=== PATIENT | female | born 1995 | race Two or more races ===

== ENCOUNTER 2017-02-26 13:59 | Emergency (ER) | payer OTHER ==
--- NOTE | 2017-02-26 14:17 | EDPHY ---
H & P Time Seen by Provider: 02/26/17 14:10 HPI/ROS: CHIEF COMPLAINT: Possible allergic reaction to mosquitos HISTORY OF PRESENT ILLNESS: 21-year-old immunocompetent female, no history of atopy, no history of allergic reaction, recently returned from [place] where she sustained mosquito bites to her left lateral thigh. She notes that the area remains erythematous, indurated, swollen. No lymphangitic streaking. She was [place] [facility] [place] . No break in skin. No weeping. PHYSICAL EXAM (Prior to examination, patient consented to physical exam, hands were washed and my usual and customary physical exam procedures followed) 1) GENERAL: Well-developed, well-nourished, alert and oriented. Appears to be in no acute distress. 2) HEAD: Normocephalic 3) HEENT: sclera anicteric . No tonsillar or glossal enlargement fired speaking full sentences with no signs of respiratory distress 4) LUNGS: Breathing comfortably.Clear bilaterally 5) SKIN: left lateral thigh, to discrete mosquito bite appearing areas with surrounding erythema, induration, no lymphangitic streaking. No central lesions. No weeping. Smoking Status: Never smoked Constitutional: Initial Vital Signs Temperature (C) 36.3 C 02/26/17 13:59 Heart Rate 76 02/26/17 13:59 Respiratory Rate 16 02/26/17 13:59 Blood Pressure 116/79 02/26/17 13:59 O2 Sat (%) 97 02/26/17 13:59 O2 Delivery Mode Room Air Allergies/Adverse Reactions: No Known Allergies Allergy (Unverified 02/26/17 14:04) Home Medications: Medication Instructions Recorded Famotidine [Pepcid 20 MG (*)] 20 mg PO BID #15 tab 02/26/17 diphenhydrAMINE [Benadryl 25 MG 25 mg PO Q6 #15 tab 02/26/17 (*)] predniSONE [Prednisone] 20 mg PO DAILY #6 tablet 02/26/17 MDM/Departure - [facility] ED Course/Re-evaluation: Doubt anaphylaxis. Doubt cellulitis. I think the patient's symptoms are more likely to localized allergic reaction to possible mosquito bite. Doubt bot fly. Recommend patient observed the area. She developed a central lesion or any weeping she needs to return to the ER. Should she develop any difficulty breathing, difficulty swallowing, she needs to return to the ER as well. The meantime recommend H1 H2 blockers as well as low-dose prednisone . She feels comfortable with this plan. - Depart Disposition: Home, Routine, Self-Care Clinical Impression: Mosquito bite Qualifiers: Encounter type: initial encounter Qualified Code(s): W57.XXXA - Bitten or stung by nonvenomous insect and other nonvenomous arthropods, initial encounter Condition: Good Instructions: Insect Bite or Sting (ED) Prescriptions: diphenhydrAMINE [Benadryl 25 MG (*)] 25 mg PO Q6 #15 tab Famotidine [Pepcid 20 MG (*)] 20 mg PO BID #15 tab predniSONE [Prednisone] 20 mg PO DAILY #6 tablet Referrals: LAITH GRIMALDO [Other] - 1-2 days without fail GAYE Moreno,. [Clinic] - 1-2 days without fail
[2017-02-26 14:46] VITALS: BP 109/65; PULSE 65; RESP 15; TEMP 98.3; O2SAT 98
== END 2017-02-26 14:46 | disposition home or self-care (01) ==
DX: S70.362A Insect bite (nonvenomous), left thigh, initial encounter (principal); W57.XXXA Bitten or stung by nonvenomous insect and other nonvenomous arthropods, initial encounter